=== PATIENT | male | born 2000 | race African-American/Black ===

== ENCOUNTER 2020-04-22 17:14 | Emergency (ER) | payer OTHER ==
--- NOTE | 2020-04-22 17:21 | PDOC ---
Rapid Medical Evaluation Time Seen by Provider: 04/22/20 17:19 Medical Evaluation: Allergies Allergy/AdvReac Type Severity Reaction Status Date / Time No Known Allergies Allergy Verified 06/07/15 11:32 04/22/20 17:20 I have performed a brief in-person evaluation of this patient. CC: lip laceration while playing basketball PE: subcentimeter laceration to right upper lip Orders: nothing Patient will proceed to ED for further evaluation. Discharge Disposition - Diagnosis Lip laceration - Referrals - Patient Instructions - Post Discharge Activity
[2020-04-22 17:33] VITALS: BP 121/71; PULSE 85; TEMP 97.8; BMI 22.1
[2020-04-22] MEDS ORDERED: DIPHTH,PERTUSS(ACELL),TET 0.5 ML DISP.SYRIN IM ONE ×2 (17:41→17:42)
--- NOTE | 2020-04-22 18:12 | PDOC ---
History of Present Illness - General Chief Complaint: Laceration Stated Complaint: LIP CUT Time Seen by Provider: 04/22/20 17:19 History Source: Patient Exam Limitations: No Limitations - History of Present Illness Initial Comments: 04/22/20 18:14 Patient is a 20-year-old male who presents to the ED with a left lower lip laceration that he sustained while playing basketball just prior to arrival. He states he believes he got elbowed in the mouth. He denies feeling his bite is off or any loose teeth. He denies any LOC, visual changes or headache. He has not taken anything for his symptoms. He states that his last tetanus booster when he was 12 years old. He denies any past medical history or allergies to medications. Past History - Medical History Allergies/Adverse Reactions: Allergies Allergy/AdvReac Type Severity Reaction Status Date / Time No Known Allergies Allergy Verified 04/22/20 17:20 Home Medications: Ambulatory Orders NK [No Known Home Medication] 06/01/15 Anemia: No Asthma: No Cancer: No Cardiac Disorders: No CVA: No COPD: No CHF: No Dementia: No Diabetes: No GI Disorders: No Disorders: No HTN: No Hypercholesterolemia: No Liver Disease: No Seizures: No Thyroid Disease: No - Immunization History Immunization Up to Date: Yes - Psycho-Social/Smoking History Smoking Status: No Smoking History: Never smoked Number of Cigarettes Smoked Daily: 0 - Substance Abuse Hx (Audit-C & DAST Scrn) How often the patient has a drink containing alcohol: Monthly or less Score: In Men: 4 or > Positive; In Women: 3 or > Positive: 1 Screen Result (Pos requires Nsg. Audit-10AR): Negative In the last yr the pt used illegal drug/Rx for NonMed reason: No Score: Yes response is considered Positive: 0 Screen Result (Positive result requires Nsg. DAST-10): Negative Review of Systems - Review of Systems Comments:: 04/22/20 18:14 - Review of Systems Able to Perform ROS?: Yes Constitutional: No: Fever, Chills, Loss of Appetite, Night Sweats, Weakness HEENTM: No: Eye Pain, Vision changes, Ear Pain, Throat Pain, Throat Swelling, Mouth Pain, Difficulty Swallowing Respiratory: No: Cough, Shortness of Breath, Wheezing, Sputum Production Cardiac (ROS): No: Chest Pain, Chest Tightness, Palpitations, Irregular Heart Beat, Edema ABD/GI: No: Nausea, Vomiting, Abdominal Pain, Diarrhea : No Dysuria, No Hematuria, No Frequency, No Urgency Musculoskeletal: No: Muscle Pain, Back Pain, Joint Pain, Muscle Weakness, Neck Pain Integumentary: No: Lesions, Rash; positive: Right lower lip laceration Neurological: No: Headache, Numbness, Tingling, Weakness, Speech Difficulties *Physical Exam - Vital Signs Last Vital Signs Temp Pulse Resp BP Pulse Ox 97.8 F 85 18 121/71 100 04/22/20 17:21 04/22/20 17:21 04/22/20 17:21 04/22/20 17:21 04/22/20 17:21 - Physical Exam 04/22/20 18:15 - Physical Exam General Appearance: Nourished, Appropriately Dressed, No Distress HEENT: EOMI, Normal Voice, No Pharyngeal Erythema, No Muffled/Hoarse voice, No Tonsillar Exudate, No Tonsillar Erythema, No Nasal Congestion, No Rhinorrhea, Hearing Grossly Normal, TMs Normal, No TM Bulging, No TM Dullness, No TM Erythema Neck: Supple, No Lymphadenopathy (R), No Lymphadenopathy (L), No Rigidity, No Decreased range of motion Respiratory/Chest: Lungs Clear, Normal Breath Sounds. No Respiratory Distress, No Accessory Muscle Use Cardiovascular: Regular Rhythm, Regular Rate, S1, S2 Gastrointestinal/Abdominal: Normal Bowel Sounds, Soft. Non-tender, No Guarding, No Rebound, No Rigidity Musculoskeletal: Normal Inspection. No Decreased Range of Motion Extremity: Normal Capillary Refill, Normal Inspection Integumentary: Normal Color, Dry. No Rash; 1.5 cm right lower lip laceration that abuts the vermilion border but does not cross it. Mild gaping. Mild active bleeding. No sign of foreign body. Neurologic: plastic machine operator II-XII NML intact, Fully Oriented, Alert, Normal Mood/Affect, Normal Response Procedures - Laceration/Wound Repair Right Lower Lip Wound Length: to 2.5 cm Wound Explored: clean Wound's Depth, Shape: superficial Irrigated w/ Saline: Yes Anesthesia: 1% Lidocaine Amount of Anesthetic (ccs): 2 Wound Repaired With: Sutures Suture Size/Type: 4:0, other (absorbable ) Number of Sutures: 4 ED Treatment Course - Medications Given in the ED: ED Medications Discontinued Medications Generic Name Dose Route Start Last Admin Trade Name Len PRN Reason Stop Dose Admin Diphtheria/Tetanus/Acell Pertussis 0.5 ml 04/22/20 17:41 04/22/20 17:45 Boostrix - IM 04/22/20 17:42 0.5 ml .ONCE ONE Administration Medical Decision Making - Medical Decision Making 04/22/20 18:10 Assessment: Patient is a 20-year-old male with a right lower lip laceration that he sustained while playing basketball. Plan: -Suture repair done in the ED with 4 absorbable sutures -Tetanus booster given -Patient has been given wound care instruction -He understands and agrees with this treatment plan and he is stable for discharge. Discharge - Discharge Information Problems reviewed: Yes Clinical Impression/Diagnosis: Lip laceration Qualifiers: Encounter type: initial encounter Qualified Code(s): S01.511A - Laceration without foreign body of lip, initial encounter Condition: Stable Disposition: HOME - Follow up/Referral Referrals: Ronn Jean MD [Primary Care Provider] - - Patient Discharge Instructions Patient Printed Discharge Instructions: DI for Laceration Repair -- Simple Additional Instructions: Keep the wound clean and dry. Avoid saturating the wound because it will cause the sutures to absorb more quickly. Avoid biting into hard foods as this can cause the laceration to open again. The sutures will absorb on their own but if you still noticed them after 5 days you can gently rub them with warm water to allow them to observe more quickly. Follow-up with your primary doctor within 1 to 2 days for repeat evaluation. - Post Discharge Activity
== END 2020-04-22 18:16 | disposition home or self-care (01) ==
LOC: JERFT 17:14
PROC: 0CQ1XZZ Repair Lower Lip, External Approach (ICD-10-PCS; principal; 2020-04-22)
PROC: 3E0234Z Introduction of Serum, Toxoid and Vaccine into Muscle, Percutaneous Approach (ICD-10-PCS; 2020-04-22)
DX: S01.511A Laceration without foreign body of lip, initial encounter (principal)
CPT/HCPCS: 90715; 99284-25